=== PATIENT | male | born 1965 | race Hispanic/Latino ===

== ENCOUNTER 2024-02-21 06:35 | Day surgery (SDC) | payer OTHER, SELFPAY ==
[2024-02-03 14:17] VITALS: BMI 40.2
[2024-02-21] VITALS (9 sets, daily range): BP systolic 131–154; BP diastolic 71–87; BMI 40.2
[2024-02-21] MEDS: NORMOSOL-R/PLASMALYTE-A 1000 IV (10:25)
[2024-02-21 10:34] LABS: Glucose - Point of Care 81 mg/dl (70-99)
[2024-02-21] MEDS: TYLENOL 1000 MG PO (10:53)
--- NOTE | 2024-02-21 13:00 | OR.RPT ---
Addendum entered and electronically signed by Laron Lambert MD 02/21/24 15:24:
Prior to mesh placement the defect was closed with 0 PDS stratafix suture.
Addendum entered and electronically signed by Laron Lambert MD 02/21/24 15:21:
The assistance of Emma CRAWLEY was required due to the complexity of the procedure. During the procedure she assisted with retraction, resection, and closure of the wound.
Original Note:
Operative Report
Operative Report
Primary Surgeon: Fausto
Assisting: Emma CRAWLEY
Pre-op Diagnosis: Umbilical hernia
Post-op Diagnosis: Incarcerated umbilical hernia
Procedure Performed: Robot assisted laparoscopic repair of incarcerated umbilical hernia (rTAPP)
Anesthesia Type: GETA + TAP block
Specimen / Cultures: None
Estimated Blood Loss: 10cc
Complications: None immediate
Operative Findings: 2cm defect with incarcerated fat; 15cm x 15cm bard soft mesh
Date of surgery: 02/21/24
Indications:� This 58M developed a symptomatic incarcerated umbilical hernia. Robot assisted laparoscopic repair was planned.
Description of procedure:� The patient was taken to the operating room and positioned into supine position. The patient�s abdomen was prepped and draped in standard sterile fashion. A time-out was completed verifying correct patient, procedure,
site, positioning, and implants and special equipment prior to beginning this procedure.� The hernia was partially manually reduced after induction. A stab incision was made in the left upper quadrant, a Veress needle was inserted and proper
position was confirmed by aspiration and saline drop test. Following this, pneumoperitoneum was created with insufflation of carbon dioxide to 12 mmHg. Then a 8mm robotic trocar was inserted at the left anterior axillary line at the level of the
umbilicus. The laparoscope was inserted and no injuries were identified in the area. Under direct visualization, the initial trocar was exposed and two 8mm trocars were placed a hand's breadth above and below the initial trocar under direct
visualization.
Attention was turned to the umbilical defect. The peritoneum was incised several cm superior to the defect and a peritoneal flap was developed in transverse and caudad directions using blunt and sharp dissection and judicious electrocautery. The
defect was identified and measured as above. Incarcerated fatty contents were reduced. A 15cm x 15cm bard soft mesh was passed into the abdomen. It was placed against the underside of the abdominal wall and secured in place with 2-0 vicryl sutures
at all four corners. The flap was closed over the mesh and secured with 2-0 monocryl stratafix suture. A 14g angiocath was used to decompress the preperitoneal space. The flap sealed and suctioned nicely up to the abdominal wall. The mesh did not
fold nor curl. A transversus abdominis plane block was then performed under laparoscopic vision with marcaine/decadron.
After ensuring adequate hemostasis, the trocars were removed and the pneumoperitoneum allowed to escape. The trocar incisions were closed at the skin level using 4-0 monocryl and topical skin adhesive. All counts were correct and the patient
tolerated the procedure well and was taken to the postanesthesia care unit in stable condition.
== END 2024-02-21 15:15 | disposition home or self-care (01) ==
LOC: SDS 06:35
PROVIDERS: ATTENDING PHYSICIAN Surgery; FAMILY PHYSICIAN Family Medicine
DX: K42.0 Umbilical hernia with obstruction, without gangrene (principal)
CPT/HCPCS: 49592; 36415; 82962; 93005; C1781